=== PATIENT | male | born 1955 | race Caucasian/White ===

== ENCOUNTER 2018-02-25 10:55 | Emergency (ER) | payer BC ==
[2018-02-25] MEDS ORDERED: Ketorolac Tromethamine 30 MG/ML VIAL ONE (11:10)
--- NOTE | 2018-02-25 11:25 | RAD ---
THREE VIEWS RIGHT ANKLE: HISTORY: Pain. COMPARISON: None. FINDINGS: Ankle mortise is intact. Joint spaces are preserved. There is no fracture. Chronic changes of the calcaneus are noted. IMPRESSION: No fracture. POS: [id number]
== END 2018-02-25 11:32 | disposition home or self-care (01) ==
LOC: SCSER 10:55
DX: M25.571 Pain in right ankle and joints of right foot (principal); I48.91 Unspecified atrial fibrillation; G43.909 Migraine, unspecified, not intractable, without status migrainosus; E66.9 Obesity, unspecified; F41.9 Anxiety disorder, unspecified; F17.220 Nicotine dependence, chewing tobacco, uncomplicated; Z79.899 Other long term (current) drug therapy
CPT/HCPCS: 96372; J1885

== ENCOUNTER 2022-12-13 10:28 | Outpatient (CLI) | payer MEDICARE, BC | END 2022-12-13 10:29 | disposition home or self-care (01) | LOC: SCSRAD 10:28 | PROVIDERS: ATTEND Nurse Practitioner Family | DX: M25.561 Pain in right knee (principal); M17.11 Unilateral primary osteoarthritis, right knee; M25.461 Effusion, right knee ==

== ENCOUNTER 2024-09-26 08:45 | Outpatient (CLI) | payer MEDICARE ==
[2024-09-26 10:45] LABS: #Basophils 0.05 10x3/uL (0.0-0.2); #Eosinophils 0.28 10x3/uL (0.0-0.7); #Monocytes 0.78 10x3/uL (0.11-0.59); #Neutrophils 3.60 10x3/uL (1.40-6.50); %Basophils 0.7 % (0.0-1.0); %Eosinophils 3.9 % (0.0-10.0); %Lymphocytes 33.3 % (21.0-51.0); %Monocytes 11.0 % (0.0-10.0); %Neutrophils 50.5 % (42.0-75.0); Hematocrit 45.9 % (42.0-52.0); Hemoglobin 15.2 g/dL (14.0-18.0); Mean Corpuscular Hemoglobin 30.4 pg (27.0-31.0); Mean Corpuscular Volume 91.8 fL (78.0-98.0); Platelet Count 226 10x3/uL (130-400); Red Blood Cell (RBC) Count 5.00 mill/uL (4.70-6.10); White Blood Cell (WBC) Count 7.12 10x3/uL (4.8-10.8)
[2024-09-26 11:06] LABS: INR-International Normal Ratio 1.1; Prothrombin Time 14.2 sec (12.0-14.7)
[2024-09-26 11:41] LABS: Anion Gap 12 mmol/L (10-20); BUN (Urea Nitrogen) 16 mg/dL (8.4-25.7); Calc. Creatinine Clearance 0 mL/min (70-130); Calcium 9.1 mg/dL (7.8-10.44); Carbon Dioxide 23 mmol/L (23-31); Chloride 106 mmol/L (98-107); Glucose 138 mg/dL (80-115); Potassium 4.0 mmol/L (3.5-5.1); Sodium 137 mmol/L (136-145)
[2024-09-26 12:37] LABS: Bacteria/HPF None Seen HPF (None Seen); Glucose, Urine (Dipstick) Normal (Negative); Leukocyte Negative Leu/uL (Negative); Protein, Urine (Dipstick) Negative (Neg-Trace); RBC/HPF 0-3 HPF (0-3); Specific Gravity, Urine 1.020 (1.002-1.036); WBC/HPF 0-3 HPF (0-3)
== END 2024-09-26 08:46 | disposition home or self-care (01) ==
LOC: LABBT 08:45
PROVIDERS: ATTEND Orthopaedic Surgery
DX: Z01.818 Encounter for other preprocedural examination (principal); M17.11 Unilateral primary osteoarthritis, right knee
CPT/HCPCS: 71046; 80048; 81001; 85025; 85610; 87081

== ENCOUNTER 2024-10-01 05:34 | Observation (INO) | payer MEDICARE ==
[2024-10-01] MEDS ORDERED: fentaNYL PF 100 MCG/2 ML SYRINGE ONE (06:13)
[2024-10-01] MEDS ORDERED: PROPOFOL 40 ML ONE (06:14)
[2024-10-01] MEDS ORDERED: Ondansetron PF 4 MG/2 ML Vial ONE (06:19)
[2024-10-01] MEDS ORDERED: Tranexamic Acid 1,000 MG/10 ML VIAL ONE ×2 (06:27→09:39)
[2024-10-01] MEDS ORDERED: VANCOMYCIN 2 GRAM/400 ML BAG ONE (06:27)
[2024-10-01] MEDS ORDERED: Rocuronium Bromide 10 MG/ML (10ML VIAL) ONE (07:25)
[2024-10-01] MEDS ORDERED: Albuterol HFA (OR) 200 PUFF INH ONE (07:25)
[2024-10-01] MEDS ORDERED: Ondansetron PF 4 MG/2 ML Vial IVP PRN ×2 (07:30→08:49)
[2024-10-01] MEDS ORDERED: HYDROcodone/Acetaminophen 10/325 mg Tablet PO PRN ×2 (07:30)
[2024-10-01] MEDS ORDERED: Ropivacaine 0.2% 550 ML 550 ML NERVE BLCK SCH (07:30)
[2024-10-01] MEDS ORDERED: PROPOFOL 20 ML ONE (08:27)
[2024-10-01] MEDS ORDERED: Ropivacaine 0.5% HCl/PF (150 MG/30 ML VIAL) ONE (08:28)
[2024-10-01] MEDS ORDERED: Lidocaine 1% (PF) 30 ML VIAL ONE (08:28)
[2024-10-01] MEDS ORDERED: Ketorolac Tromethamine 30 MG (1 mL) VIAL ONE (08:37)
[2024-10-01] MEDS ORDERED: PHENYLEPHRINE-NS 100 MCG/ML 10 ML SYRINGE ONE (08:41)
[2024-10-01] MEDS ORDERED: SUGAMMADEX SODIUM 200 MG/2 ML VIAL ONE (08:43)
[2024-10-01] MEDS ORDERED: diphenhydrAMINE 25 MG CAP PO PRN (08:49)
[2024-10-01] MEDS ORDERED: Non-Formulary Item 1 EACH (Ubidecarenone [Co Q-10] 400 MG Capsule) PO SCH (09:00)
[2024-10-01] MEDS ORDERED: Non-Formulary Item 1 EACH (Paroxetine Hcl [Paxil] 30 MG Tablet) PO SCH (09:00)
[2024-10-01] MEDS ORDERED: Non-Formulary Item 1 EACH (Bupropion Hcl [Bupropion Hcl Sr] 150 MG Tab) PO SCH (09:00)
[2024-10-01] MEDS ORDERED: Non-Formulary Item 1 EACH (Olmesartan Medoxomil [Olmesartan Medoxomil] 40 MG Tablet) PO SCH (09:00)
[2024-10-01] MEDS ORDERED: Non-Formulary Item 1 EACH (Cholecalciferol (Vitamin D3) [Vitamin D3] 25 MCG Capsule) PO SCH (09:00)
[2024-10-01] MEDS ORDERED: Non-Formulary Item 1 EACH (Magnesium [Magnesium] 200 MG Tablet) PO SCH (09:00)
[2024-10-01 11:14] VITALS: BMI 37.2
[2024-10-01] MEDS: Multivitamin W/ Minerals 1 TAB PO SCH (11:32)
[2024-10-01] MEDS: Ferrous Gluconate 324 MG TAB PO SCH (11:32)
[2024-10-01] MEDS: Senokot S 8.6-50 MG TAB PO SCH (11:32)
[2024-10-01] MEDS: Aspirin 81 mg Enteric Coated Tablet PO SCH (11:32)
[2024-10-01] MEDS: Ketorolac Tromethamine 30 MG (1 mL) VIAL IVP SCH (14:09)
[2024-10-01] MEDS: Acetaminophen 325 MG TAB PO PRN (14:09)
[2024-10-01] MEDS: Clindamycin/D5W 900 MG in Premix 1 BAG IVPB SCH ×2 (14:10→20:32)
[2024-10-01] MEDS: VANCOMYCIN 2 GRAM/400 ML Premix BAG IVPB SCH (17:59)
[2024-10-01] MEDS: Rosuvastatin 10 MG TAB PO SCH (20:33)
[2024-10-02 04:37] LABS: Hematocrit 39.8 % (42.0-52.0); Hemoglobin 13.5 g/dL (14.0-18.0); Mean Corpuscular Hemoglobin 30.6 pg (27.0-31.0); Mean Corpuscular Volume 90.2 fL (78.0-98.0); Platelet Count 208 10x3/uL (130-400); Red Blood Cell (RBC) Count 4.41 mill/uL (4.70-6.10); White Blood Cell (WBC) Count 12.41 10x3/uL (4.8-10.8)
[2024-10-02 08:22] VITALS: BP 125/75; TEMP 98.7
[2024-10-02] MEDS ORDERED: Magnesium Oxide 400 MG TAB PO SCH (09:00)
[2024-10-02] MEDS ORDERED: Bupropion 150 MG SR.TAB PO SCH (09:00)
[2024-10-02] MEDS ORDERED: Losartan 25 MG TAB PO SCH (09:00)
[2024-10-02] MEDS ORDERED: PARoxetine 20 MG TAB PO SCH (09:00)
[2024-10-02] MEDS ORDERED: Cholecalciferol 1,000 UNITS (25 MCG) TAB PO SCH (09:00)
[2024-10-02] MEDS ORDERED: CO Q-10 CAPSULE 100 MG PO SCH (09:00)
== END 2024-10-02 10:54 | disposition home or self-care (01) ==
LOC: SDC 05:34 → SURG A 10:53 → SDC 13:31
PROVIDERS: ADMIT Orthopaedic Surgery; ATTEND Orthopaedic Surgery
PROC: 0SRC0JZ Replacement of Right Knee Joint with Synthetic Substitute, Open Approach (ICD-10-PCS; principal; 2024-10-01)
PROC: 3E0T3BZ Introduction of Anesthetic Agent into Peripheral Nerves and Plexi, Percutaneous Approach (ICD-10-PCS; 2024-10-01)
DX: M17.11 Unilateral primary osteoarthritis, right knee (principal); F41.9 Anxiety disorder, unspecified; Z96.652 Presence of left artificial knee joint; Z87.891 Personal history of nicotine dependence; Z88.0 Allergy status to penicillin; Z88.1 Allergy status to other antibiotic agents; Z79.899 Other long term (current) drug therapy
CPT/HCPCS: 0055T; 27447; 64448; 36415; 85027; A4306; C1713; C1776; C1889; J0665; J1100; J1885; J2250; J2405; J2704; J2795; J3010; J3373; J3375; J3490; J7030